=== PATIENT | female | born 1995 | race Caucasian/White ===

== ENCOUNTER → 2019-11-10 14:40 | Outpatient (BNVA) | payer MEDICAID, SELFPAY | PROVIDERS: Visit Provider Obstetrics & Gynecology | DX: Z3A.00 Weeks of gestation of pregnancy not specified (principal); Z34.90 Encounter for supervision of normal pregnancy, unspecified, unspecified trimester | CPT/HCPCS: 80053; 80307; 82950; 84315; 85027; 86592; 86762; 86803; 86850; 86900; 87340; 87806 ==

== ENCOUNTER → 2019-11-14 08:05 | Outpatient (BNVA) | payer MEDICAID, SELFPAY | PROVIDERS: Visit Provider Obstetrics & Gynecology | DX: R73.09 Other abnormal glucose (principal) | CPT/HCPCS: 82951; 82952 ==

== ENCOUNTER → 2019-11-18 08:52 | Outpatient (BNVA) | payer MEDICAID, SELFPAY | PROVIDERS: Visit Provider Obstetrics & Gynecology | DX: Z34.90 Encounter for supervision of normal pregnancy, unspecified, unspecified trimester (principal) | CPT/HCPCS: 76815; 83036; 84315 ==

== ENCOUNTER → 2019-11-25 13:12 | Outpatient (BNVA) | payer MEDICAID, SELFPAY | PROVIDERS: Visit Provider Nurse Practitioner Women's Health | DX: O24.312 Unspecified pre-existing diabetes mellitus in pregnancy, second trimester (principal); O99.211 Obesity complicating pregnancy, first trimester; O99.341 Other mental disorders complicating pregnancy, first trimester; Z3A.12 12 weeks gestation of pregnancy | CPT/HCPCS: 80053; 84315; 87491; 87591; 87661 ==

== ENCOUNTER → 2020-03-15 09:48 | Outpatient (BNVA) | payer MEDICAID, SELFPAY | PROVIDERS: Visit Provider Obstetrics & Gynecology | DX: O09.892 Supervision of other high risk pregnancies, second trimester (principal); Z3A.00 Weeks of gestation of pregnancy not specified | CPT/HCPCS: 84315; 85027 ==

== ENCOUNTER → 2020-04-14 08:38 | Outpatient (BNVA) | payer MEDICAID, SELFPAY | PROVIDERS: PCP Family Medicine; Visit Provider Obstetrics & Gynecology | DX: O24.113 Pre-existing type 2 diabetes mellitus, in pregnancy, third trimester (principal); O16.9 Unspecified maternal hypertension, unspecified trimester; B37.3 Candidiasis of vulva and vagina; R30.0 Dysuria | CPT/HCPCS: 84315; 87086 ==

== ENCOUNTER 2020-04-18 14:54 | Outpatient (CLI) | payer MEDICAID, SELFPAY ==
[2020-04-18 16:33] LABS: Total Protein 24 Hour Urine 156.8 mg/24HR (0-150); Total Volume, Urine 2375 mL; Urine Total Protein 24 Hour 6.6 mg/dL (0-150)
== END 2020-04-18 14:55 | disposition home or self-care (01) ==
LOC: LAB 14:57
PROVIDERS: PCP Family Medicine; Referring Provider Obstetrics & Gynecology; Visit Provider Obstetrics & Gynecology
DX: O24.113 Pre-existing type 2 diabetes mellitus, in pregnancy, third trimester (principal); O16.9 Unspecified maternal hypertension, unspecified trimester
CPT/HCPCS: 84156

== ENCOUNTER → 2020-05-10 08:50 | Outpatient (BNVA) | payer MEDICAID, SELFPAY | PROVIDERS: PCP Family Medicine; Visit Provider Obstetrics & Gynecology | DX: O24.113 Pre-existing type 2 diabetes mellitus, in pregnancy, third trimester (principal); O09.893 Supervision of other high risk pregnancies, third trimester; Z3A.00 Weeks of gestation of pregnancy not specified | CPT/HCPCS: 84315; 87081 ==

== ENCOUNTER → 2020-05-24 09:03 | Outpatient (BNVA) | payer MEDICAID, SELFPAY | PROVIDERS: PCP Family Medicine; Visit Provider Obstetrics & Gynecology | DX: O09.893 Supervision of other high risk pregnancies, third trimester (principal); O24.113 Pre-existing type 2 diabetes mellitus, in pregnancy, third trimester; O99.820 Streptococcus B carrier state complicating pregnancy; O16.3 Unspecified maternal hypertension, third trimester; Z3A.00 Weeks of gestation of pregnancy not specified | CPT/HCPCS: 84315; 87635 ==

== ENCOUNTER 2020-05-28 14:14 | Outpatient (CLI) | payer MEDICAID, SELFPAY ==
--- NOTE | 2020-05-28 14:22 | US_ITS ---
WS: [id number] BIOPHYSICAL PROFILE HISTORY: O24.113 - Pre-existing type 2 diabetes mellitus, in , third trimester COMPARISON: 05/24/2020 Cardiac activity: 147 bpm. Cervix: closed. Placenta: Not visualized. Parameters are as follows: Breathin Movement: 2 Tone: 2 Fluid volume: 2 Single vertical pocket of amniotic fluid 3.2 cm. US/US OB BPP wo NST 44137 IMPRESSION: 1. Biophysical profile score: 8/8. 2. Single vertical pocket of amniotic fluid is 3.2 cm.
== END 2020-05-28 14:15 | disposition home or self-care (01) ==
PROVIDERS: PCP Obstetrics & Gynecology; Visit Provider Obstetrics & Gynecology
DX: O24.113 Pre-existing type 2 diabetes mellitus, in pregnancy, third trimester (principal)
CPT/HCPCS: 76819

== ENCOUNTER 2020-05-30 19:15 | Inpatient (IN) | payer MEDICAID, SELFPAY ==
[2020-05-30] VITALS (12 sets, daily range): BP systolic 116–140; BP diastolic 56–92; PULSE 77–112; TEMP 36–36.1; BMI 66.0
[2020-05-30 19:53] LABS: Glucose Point of Care 109 mg/dL (70-110)
[2020-05-30 20:46] LABS: Basophils % 0.1 %; Eosinophils % 0.2 %; Hemoglobin 12.9 g/dL (11.5-15.3); Lymphocytes # 2.7 10^3/uL (0.8-4.8); Lymphocytes % 18.4 %; Mean Corpuscular HGB Conc 30.7 g/dL (30.0-36.0); Mean Corpuscular Hemoglobin 25.6 pg (28.0-34.0); Mean Corpuscular Volume 83.3 fL (81-99); Mean Platelet Volume 11.8 fL (7.4-10.4); Monocytes # 1.1 10^3/uL (0.2-0.9); Monocytes % 7.8 %; Neutrophils # 10.68 10^3/uL (1.8-7.7); Neutrophils % 73.2 %; Nucleated Red Blood Cells % 0 %; Platelet Count 297 10^3/cmm (130-400); Red Blood Count 5.04 10^6/uL (4.1-5.3); White Blood Count 14.6 10^3/uL (4.0-10.0)
[2020-05-30 21:10] LABS: Add Urine Microscopic? YES; Bilirubin Urine Neg (Negative); Blood Urine Trace (Negative); Glucose Urine UA Norm (Normal); Ketones Urine Negative (Negative); Leukocyte Esterase Urine Negative (Negative); Nitrate Urine Negative (Negative); Protein Urine Trace (Negative); Urine Appearance Clear (CLEAR); Urine Color Yellow (Yellow); Urobilinogen Urine 1 mg/dL (Negative); pH Urine 5 (5-7)
[2020-05-30 21:11] LABS: Add Urine Culture? No; Bacteria Urine TRACE /hpf; Mucus Urine 2+ /hpf; RBC Urine 0-4 /hpf (0-2); Squamous Epithelial Cell Urine 25-40 /hpf (0-5); WBC Urine 0-4 /hpf (0-5)
[2020-05-30 21:18] LABS: Alanine Aminotransferase 14 U/L (0-33); Albumin Level 3.1 g/dL (3.5-5.2); Alkaline Phosphatase 140 IU/L (35-105); Anion Gap 16.1 (5-19); Aspartate Amino Transferase 14 U/L (0-32); Blood Urea Nitrogen 13 mg/dL (6-20); Carbon Dioxide 22 mmol/L (22-29); Chloride 106 mmol/L (98-107); Globulin 3.5 g/dL (1.3-4.6); Glomerular Filtration Rate 103.7 mL/min (90-130); Glucose 110 mg/dL (65-115); Osmolality Calculated 291 mOsm/kg (285-295); Potassium 4.1 mmol/L (3.5-5.1); Sodium 140 mmol/L (136-145); Total Bilirubin 0.3 mg/dL (0.15-1.2); Total Protein 6.6 g/dL (6.6-8.7); Uric Acid 6.4 mg/dL (2.4-5.7)
[2020-05-30 21:21] LABS: UPRO/UCREAT Ratio 0.23 mg/mg CR; Urine Creatinine 212 mg/dL (28-217); Urine Protein Random 48 mg/dL
[2020-05-30] MEDS: ampicillin 2,000 MG in sodium chloride 0.9% (plus) 50 ML 100 MG IV (21:27)
[2020-05-30] MEDS: dextrose 5%-sod chloride 0.9% 1,000 ML 125 ML IV (21:27)
[2020-05-30] MEDS: miSOPROStol 100 mcg tablet 25 MCG VAGINAL (21:43)
[2020-05-30] MEDS: morphine 4 mg/mL SDV 1 mL 8 MG IM (23:23)
[2020-05-30] MEDS: promethazine 25 mg/mL SDV 1 mL IM (23:24)
[2020-05-31] VITALS (110 sets, daily range): BP systolic 114–149; BP diastolic 56–92; PULSE 69–97; RESP 16–17; TEMP 35.8–37.2; O2SAT 94–99
[2020-05-31] MEDS: ampicillin 1,000 MG in sodium chloride 0.9% (plus) 50 ML 100 MG IV ×6 (01:33→21:24)
[2020-05-31] MEDS: miSOPROStol 100 mcg tablet 25 MCG VAGINAL ×3 (02:59→11:54)
[2020-05-31 03:57] LABS: Glucose Point of Care 108 mg/dL (70-110)
[2020-05-31 03:57] LABS: Glucose Point of Care 112 mg/dL (70-110)
[2020-05-31] MEDS: dextrose 5%-sod chloride 0.9% 1,000 ML 125 ML IV ×2 (05:40→15:17)
[2020-05-31 07:53] LABS: Glucose Point of Care 103 mg/dL (70-110)
[2020-05-31 12:12] LABS: Glucose Point of Care 90 mg/dL (70-110)
[2020-05-31 16:42] LABS: Glucose Point of Care 88 mg/dL (70-110)
--- NOTE | 2020-05-31 18:34 | PM.PN ---
Subjective Subjective: Interval history: Subjective- Ms. Fletcher is a 25-year-old 1 para 0 at 39 weeks and 2 days today who is undergoing induction for type 2 diabetes controlled with glyburide. History is significant for morbid obesity with a BMI of 66, acid reflux on famotidine, elevated blood pressure without a diagnosis of gestational hypertension and was thought to be related to anxiety. She presented at 8 PM on 05/30/2020 for scheduled induction and at that time had a category 1 tracing with no contractions and cervix was 1/75 percent and -4 station with a ballotable head, cephalic. She was GBS positive and started on antibiotics for GBS prophylaxis. She was also immediately placed on SCDs to help with DVT prophylaxis. Fingersticks were monitored every 4 hours and remained at goal. -Her blood pressure was initially elevated and preeclamptic labs were done and protein creatinine ratio was negative for preeclampsia with a ratio of 0.26 and remainder of labs were within normal limits -Induction was started with Cytotec placed at 10 PM and overnight and into the next day she received a total of 4 doses of Cytotec and with this her cervix made gradual change and was 3 cm 75% and -3 station. She states that she is doing okay now. Feels better after eating and having a rest. She can feel some movement and just wants to have this baby already. Objective- Blood pressure-125/63 mmHg Pulse-80 beats per minute Temperature-97.8 Fahrenheit Abdomen-gravid, nontender, morbid obesity Sterile vaginal exam-deferred EFM-135, moderate variability, accelerations present no decelerations [place]-contractions not present Assessment: 25-year-old 1 para 0 at 39 weeks and 2 days Induction of labor for type II diabetic on glyburide Morbid obesity with a BMI of 66 GBS positive on antibiotics Elevated blood pressure-likely gestational hypertension-preeclamptic labs negative on 05/30/2020 GERD on medication Anxiety not on medication Plan: Since she is at 12 hours or more of medication we will do therapeutic rest and plan on starting Pitocin for induction after about 4 to 6 hours. Patient to have a regular diet ambulate and shower. When patient is at rest SCDs to be placed -Plan was discussed with patient and all her questions were answered. Covid testing 7 days this today and we will repeat Covid testing-done today Vitals/I&O/Wt Last Vital Signs Temp 97.8 F 05/31/20 17:40 Pulse 80 05/31/20 16:48 Resp 16 05/31/20 17:40 BP 125/63 05/31/20 16:48 05/31/20 05/31/20 05/31/20 06:59 14:59 22:59 Intake Total 1100 / 1150 1050 / 1050 254.167 / 1304.167 Balance 1100 / 1150 1050 / 1050 254.167 / 1304.167 Weight last 48 hrs Weight 385 lb Data : 05/30/20 19:58 05/30/20 20:30 Attestations Medical Necessity Statement*: Patient will need to stay for 2 or 3 more nights for induction delivery and recovery Coding Level of Care Code Acute Perpetual Inventory Clerk for Clifton Alonzo
[2020-05-31 19:34] LABS: Glucose Point of Care 151 mg/dL (70-110)
[2020-05-31] MEDS: lactated ringers 1,000 ML 999 ML IV (23:35)
[2020-06-01] VITALS (232 sets, daily range): BP systolic 108–194; BP diastolic 56–92; PULSE 66–115; RESP 17–18; TEMP 35.4–36.9; O2SAT 90–100
[2020-06-01 00:02] LABS: Glucose Point of Care 91 mg/dL (70-110)
[2020-06-01] MEDS: oxytocin 30 UNIT/500 ML BAG IV (00:49)
[2020-06-01] MEDS: ampicillin 1,000 MG in sodium chloride 0.9% (plus) 50 ML 100 MG IV ×3 (00:54→09:43)
[2020-06-01 04:01] LABS: Glucose Point of Care 105 mg/dL (70-110)
[2020-06-01] MEDS: lactated ringers 1,000 ML 125 ML IV (05:05)
--- NOTE | 2020-06-01 06:32 | P.PCNOB_ITS ---
Delivery Note: Date of delivery: June 02, 2020 - PRE-DELIVERY DIAGNOSIS: 25-year-old 1 para 0 at 39 weeks and 3 days gestation Type 2 diabetes well controlled on glyburide GBS positive-on antibiotics Elevated blood pressure-likely check gestational hypertension-negative for preeclampsia GERD on medication Anxiety not on medication Morbid obesity with a BMI of 66 POST-DELIVERY DIAGNOSIS: 25-year-old 1 para 1 status post vaginal delivery Vaginal sulcal tear Type 2 diabetes Morbid obesity BMI of 66 PROCEDURE: Vaginal delivery on 06/01/2020 ANESTHESIA: Local anesthesia with 2% lidocaine DELIVERING PHYSICIAN: Treasure Stacy FACOG PRE-DELIVERY COURSE: Ms. Fletcher is a 25-year-old 1 para 0 at 39 weeks and 2 days today presented for scheduled induction of labor for type 2 diabetes controlled with glyburide. History is significant for morbid obesity with a BMI of 66, acid reflux on famotidine, elevated blood pressure without a diagnosis of gestational hypertension and was thought to be related to anxiety. She presented at 8 PM on 05/30/2020 for scheduled induction and at that time had a category 1 tracing with no contractions and cervix was 1/75 percent and -4 station with a ballotable head, cephalic. She was GBS positive and started on antibiotics for GBS prophylaxis. She was also immediately placed on SCDs to help with DVT prophylaxis. Fingersticks were monitored every 4 hours and remained at goal. -Her blood pressure was initially elevated and preeclamptic labs were done and protein creatinine ratio was negative for preeclampsia with a ratio of 0.26 and remainder of labs were within normal limits -Induction was started with Cytotec placed at 10 PM and overnight and into the next day she received a total of 4 doses of Cytotec and with this her cervix made gradual change and was 3 cm 75% and -3 station. She was given a rest period And started on Pitocin titrated to a maximum of 5 mIU with this she started to have regular contractions and was pretty uncomfortable. She declined an epidural and was given IV fentanyl. Fingersticks were monitored every 2 hours when in active labor and were noted to be at goal. SCDs were continued the whole time. she had spontaneous rupture of membranes at about 8:30 AM with clear fluid and was 5 to 6 cm. She was 9 cm at about 1045 and very uncomfortable and unable to control pushing. She was complete at 11:15 AM on 06/01/2020 and +3 station. She was set up in lithotomy position ready to push. DELIVERY NOTE: She was set up in lithotomy position and was pushing effectively. She was noted to be +3 station and continued pushing well. The head delivered in direct OA position, nuchal cord x1 was present. The shoulders and rest of the body followed with her next push without any difficulty. The baby's mouth and nose were suctioned and the baby was placed on the mother's belly. At 1 minute cord was clamped and cut and the baby was taken to the warmer as initial heartbeat was noted to be in the 80s. The placenta delivered spontaneously intact with membranes and was discarded. The fundus was noted to be firm and well contracted however the lower uterine segment was boggy and as patient had no epidural she did not tolerate the bimanual massage very well. 800 mcg of Cytotec was placed per rectum and with this the uterine lower segment tone improved.. The vagina and cervix were inspected and[default value] no cervical lacerations were noted. There was noted to be deep left-sided sulcal laceration extending up to the level of the lateral fornix. Visualization was very difficult given prolapsing vaginal vasquez and patient's body habitus as well as the fact that she was uncomfortable she did not have an epidural. Patient was given IV fentanyl and this did help, seed analysis laboratory assistant was called in to help with retraction and long vaginal retractors were used to visualize the fornix well. Once visualization was obtained the apex of the sulcal tear was visualized without difficulty and was repaired with 2-0 Vicryl in a continuous interlocking fashion. It was noted to be a first-degree tear with only the vaginal tissue involved. Once this was repaired no areas of bruising or collecting hematoma were identified. The sulcal tear went into a second-degree perineal tear which was also repaired with 2-0 Vicryl in a continuous interlocking fashion and good hemostasis and reapproximation was obtained. Rectal exams were done and rectal mucosa and anal sphincter were noted to be intact and not involved with a tear. She was also noted to have a first-degree vaginal tear on the right side which was oozing and repaired with 3-0 Vicryl in a continuous interlocking fashion. At the end of the repair cervix was visualized noted to be intact and the remainder of the repair was also noted to be intact and hemostatic. Sponge and needle count were correct x4. Baby boy, Raul born at 1119 on 06/01/2018 with 6/9, weighing 8 pounds 6 ounces, 3790 g, 20-1/2 inches long. Placenta was delivered spontaneously intact with membranes at 11:26 AM. Cotyledons were intact , centrally inserted umbilical cord with 3 vessels noted. Estimated blood loss 600 mL. Complications-none, patient was left to recover in a stable condition This documentation was created by [employer] upper leather sorter software (known for inherent upper leather sorter error). Every effort was made to assure accuracy of upper leather sorter. Any obvious errors or omissions should be clarified with the author of the document. Coding Level of Care Code Acute Daytime Caregiver for Clifton Alonzo
[2020-06-01] MEDS: fentaNYL 50 mcg/mL INJ 2mL IVP ×2 (06:46→11:59)
[2020-06-01] MEDS: ondansetron 2 mg/ML SDV 2 mL 4 MG IVP (06:58)
[2020-06-01] MEDS: dextrose 5%-sod chloride 0.9% 1,000 ML 125 ML IV (08:11)
[2020-06-01] MEDS: fentaNYL 50 mcg/mL INJ 2mL 75 MCG IVP ×2 (08:56→13:34)
[2020-06-01 10:45] LABS: Glucose Point of Care 112 mg/dL (70-110)
[2020-06-01 10:45] LABS: Glucose Point of Care 87 mg/dL (70-110)
[2020-06-01] MEDS: miSOPROStol 200 mcg Tablet 800 MCG PR (11:34)
[2020-06-01] MEDS: lidocaine 2% INJ 20 mL INJECTION (11:39)
[2020-06-01 12:39] LABS: Basophils % 0.1 %; Hematocrit 39.6 % (37.0-47.0); Hemoglobin 12.2 g/dL (11.5-15.3); Lymphocytes % 5.7 %; Mean Corpuscular HGB Conc 30.8 g/dL (30.0-36.0); Mean Corpuscular Hemoglobin 25.7 pg (28.0-34.0); Mean Corpuscular Volume 83.5 fL (81-99); Mean Platelet Volume 11.7 fL (7.4-10.4); Monocytes # 0.5 10^3/uL (0.2-0.9); Neutrophils # 15.33 10^3/uL (1.8-7.7); Neutrophils % 90.2 %; Nucleated Red Blood Cells % 0 %; Platelet Count 266 10^3/cmm (130-400); Red Blood Count 4.74 10^6/uL (4.1-5.3); Red Cell Distribution Width 14.8 % (12.1-15.1)
[2020-06-01] MEDS: benzocaine-menthol 78 gm Canister 1 SPRAY TOPICAL (13:47)
[2020-06-01] MEDS: HYDROcodone-acetaminophen 5-325 mg Tablet PO (13:47)
[2020-06-01] MEDS: ibuprofen 800 mg tablet PO ×2 (16:11→20:15)
[2020-06-01 16:21] LABS: Coronavirus Test Green County Not Detected
[2020-06-01 17:03] LABS: Basophils % 0.1 %; Hematocrit 36.3 % (37.0-47.0); Lymphocytes # 1.6 10^3/uL (0.8-4.8); Lymphocytes % 8.2 %; Mean Corpuscular HGB Conc 30.3 g/dL (30.0-36.0); Mean Corpuscular Hemoglobin 25.9 pg (28.0-34.0); Mean Corpuscular Volume 85.6 fL (81-99); Mean Platelet Volume 11.9 fL (7.4-10.4); Monocytes % 4.9 %; Neutrophils # 17.27 10^3/uL (1.8-7.7); Neutrophils % 86.2 %; Nucleated Red Blood Cells % 0 %; Platelet Count 258 10^3/cmm (130-400); Red Blood Count 4.24 10^6/uL (4.1-5.3)
[2020-06-01 20:10] LABS: Glucose Point of Care 171 mg/dL (70-110)
[2020-06-01] MEDS: docusate sodium 100 mg Capsule PO (20:15)
[2020-06-01 22:55] LABS: Basophils # 0.1 10^3/uL (0.0-0.1); Basophils % 0.2 %; Hematocrit 38.6 % (37.0-47.0); Hemoglobin 11.3 g/dL (11.5-15.3); Lymphocytes # 4.3 10^3/uL (0.8-4.8); Lymphocytes % 18.8 %; Mean Corpuscular HGB Conc 29.3 g/dL (30.0-36.0); Mean Corpuscular Volume 88.9 fL (81-99); Mean Platelet Volume 11.8 fL (7.4-10.4); Monocytes # 2.5 10^3/uL (0.2-0.9); Neutrophils # 15.69 10^3/uL (1.8-7.7); Neutrophils % 69.4 %; Nucleated Red Blood Cells % 0 %; Platelet Count 276 10^3/cmm (130-400); Red Blood Count 4.34 10^6/uL (4.1-5.3); Red Cell Distribution Width 15.1 % (12.1-15.1); White Blood Count 22.6 10^3/uL (4.0-10.0)
[2020-06-02] MEDS: HYDROcodone-acetaminophen 5-325 mg Tablet PO ×3 (01:56→23:20)
[2020-06-02 02:35] VITALS: BP 121/63; PULSE 102; TEMP 36.6
[2020-06-02 05:49] LABS: Basophils % 0.2 %; Eosinophils % 0.1 %; Hematocrit 31.9 % (37.0-47.0); Hemoglobin 9.4 g/dL (11.5-15.3); Lymphocytes # 3.9 10^3/uL (0.8-4.8); Lymphocytes % 25.9 %; Mean Corpuscular HGB Conc 29.5 g/dL (30.0-36.0); Mean Corpuscular Hemoglobin 25.8 pg (28.0-34.0); Mean Corpuscular Volume 87.4 fL (81-99); Mean Platelet Volume 11.9 fL (7.4-10.4); Monocytes # 1.5 10^3/uL (0.2-0.9); Neutrophils % 63.3 %; Nucleated Red Blood Cells % 0 %; Platelet Count 239 10^3/cmm (130-400); Red Blood Count 3.65 10^6/uL (4.1-5.3); Red Cell Distribution Width 15.2 % (12.1-15.1)
--- NOTE | 2020-06-02 06:00 | PC.NURSE ---
MD at nurses station, reported patient states that she is in pain and requesting pain medication. MD updated on last dose and time of pain medication given. MD orders patient to have 2 hydrocodone tablets 5/325mg at this time.
--- NOTE | 2020-06-02 06:40 | P.PN_ITS ---
Subjective Subjective: Interval history: SUBJECTIVE: Ms. Fletcher is doing well today. Feels much better than she did immediately after delivery. She is ambulating well voiding without any difficulty and tolerating p.o. without nausea and vomiting. Is still a little sore in her vagina and pain medication does not resolve the pain. She is breast-feeding and bonding well with her son. She wants him to have a circumcision. She denies heavy week Flagyl bleeding abdominal pain, fever, chills, shortness of breath and chest pain OBJECTIVE/PHYSICAL EXAM: Gen.: No acute distress Heart: S1-S2 heard, regular rate and rhythm Lungs: Clear to auscultation bilaterally Abdomen: Soft, fundus firm below umbilicus,-although it is not well palpable given the patient's morbid obesity Legs: No calf tenderness, 1+ pitting bilateral pedal edema. ASSESSMENT AND PLAN: 25-year-old 1 para 1 status post vaginal delivery, day #1 -We will monitor what sugars look like today and restart glyburide as needed -SCDs on while patient is in bed or in the chair and only off when patient is am bulating for DVT prophylaxis -I would like to start heparin/Lovenox for DVT prophylaxis however I am concerned about possible vaginal hematoma formation and have been following hemoglobins throughout the night-hemoglobin this morning 9.4 with stable vital signs. Anticipate 1 more hemoglobin at noon and if hemoglobin is stable will start heparin for DVT prophylaxis--consider DVT prophylaxis with Lovenox/heparin as well-this was discussed with patient and all her questions were answered -She desires circumcision for her son-this was discussed, informed consent obtained -Anticipate discharge home tomorrow as long as she continues to do well without any problems -Encourage ambulation -Perineal care reviewed Vitals/I&O/Wt Last Vital Signs Temp 97.9 F 06/02/20 02:35 Pulse 102 H 06/02/20 02:35 Resp 17 06/01/20 18:30 BP 121/63 06/02/20 02:35 Pulse Ox 97 06/01/20 23:40 06/01/20 06/01/20 06/02/20 14:59 22:59 06:59 Intake Total 991.433 / 218.776 0932 / 1991.433 Output Total 300 / 300 200 / 500 250 / 750 Balance 691.433 / 691.433 800 / 1491.433 -250 / 1241.433 Data : 06/02/20 05:30 05/30/20 20:30 Attestations Medical Necessity Statement*: She will need to stay 1 or 2 midnights to recover from delivery Coding Level of Care Code Acute Sleeping Bag Filler for Clifton Alonzo
[2020-06-02 06:59] VITALS: BP 110/52; PULSE 104; TEMP 37.8
[2020-06-02] MEDS: docusate sodium 100 mg Capsule PO ×2 (09:43→18:04)
[2020-06-02] MEDS: prenatal vitamin Capsule 1 CAP PO (09:43)
[2020-06-02] MEDS: ibuprofen 800 mg tablet PO ×3 (09:43→21:41)
[2020-06-02] MEDS: ferrous sulfate EC 325 mg Tablet PO (09:43)
[2020-06-02 12:11] LABS: Hemoglobin 9.9 g/dL (11.5-15.3); Mean Corpuscular HGB Conc 30.9 g/dL (30.0-36.0); Mean Corpuscular Hemoglobin 26.3 pg (28.0-34.0); Mean Corpuscular Volume 84.9 fL (81-99); Mean Platelet Volume 11.6 fL (7.4-10.4); Platelet Count 242 10^3/cmm (130-400); Red Blood Count 3.77 10^6/uL (4.1-5.3); Red Cell Distribution Width 15.4 % (12.1-15.1); White Blood Count 13.4 10^3/uL (4.0-10.0)
[2020-06-02] MEDS: heparin 5,000 unit/mL INJ 1 mL 5000 UNIT SUBCUT (14:11)
[2020-06-02 15:14] LABS: Glucose Point of Care 97 mg/dL (70-110)
[2020-06-02 15:14] LABS: Glucose Point of Care 101 mg/dL (70-110)
[2020-06-02 15:14] LABS: Glucose Point of Care 95 mg/dL (70-110)
[2020-06-02 15:51] VITALS: BP 135/91; PULSE 106; TEMP 36
[2020-06-02 15:55] VITALS: TEMP 36.5; O2SAT 98
[2020-06-02] MEDS: acetaminophen 325 mg Tablet 650 MG PO (18:03)
[2020-06-02 18:41] LABS: Glucose Point of Care 127 mg/dL (70-110)
[2020-06-02 21:50] VITALS: TEMP 36.8
[2020-06-02 21:51] VITALS: BP 143/74; PULSE 111; O2SAT 97
[2020-06-03] MEDS: heparin 5,000 unit/mL INJ 1 mL 5000 UNIT SUBCUT (03:40)
[2020-06-03 03:42] VITALS: BP 125/63; PULSE 96; TEMP 36.2
[2020-06-03 07:21] LABS: Glucose Point of Care 78 mg/dL (70-110)
[2020-06-03] MEDS: HYDROcodone-acetaminophen 5-325 mg Tablet PO (07:26)
--- NOTE | 2020-06-03 08:07 | PM.DCS ---
Discharge Providers Date of Admission: 05/30/20 20:34 Date of Discharge: June 03, 2020 Attending Provider at Admission: Treasure Bolanos MD Attending Provider at Discharge: Treasure Bolanos MD PRE-DELIVERY DIAGNOSIS: 25-year-old 1 para 0 at 39 weeks and 3 days gestation Type 2 diabetes well controlled on glyburide GBS positive-on antibiotics Elevated blood pressure-likely check gestational hypertension-negative for preeclampsia GERD on medication Anxiety not on medication Morbid obesity with a BMI of 66 POST-DELIVERY DIAGNOSIS: 25-year-old 1 para 1 status post vaginal delivery Vaginal sulcal tear Type 2 diabetes Morbid obesity BMI of 66 Occasionally elevated blood pressures-likely gestational hypertension PROCEDURE: Vaginal delivery on 06/01/2020 ANESTHESIA: Local anesthesia with 2% lidocaine DELIVERING PHYSICIAN: Treasure Stacy FACOG PRE-DELIVERY COURSE: Ms. Fletcher is a 25-year-old 1 para 0 at 39 weeks and 2 days today presented for scheduled induction of labor for type 2 diabetes controlled with glyburide. History is significant for morbid obesity with a BMI of 66, acid reflux on famotidine, elevated blood pressure without a diagnosis of gestational hypertension and was thought to be related to anxiety. She presented at 8 PM on 05/30/2020 for scheduled induction and at that time had a category 1 tracing with no contractions and cervix was 1/75 percent and -4 station with a ballotable head, cephalic. She was GBS positive and started on antibiotics for GBS prophylaxis. She was also immediately placed on SCDs to help with DVT prophylaxis. Fingersticks were monitored every 4 hours and remained at goal. -Her blood pressure was initially elevated and preeclamptic labs were done and protein creatinine ratio was negative for preeclampsia with a ratio of 0.26 and remainder of labs were within normal limits -Induction was started with Cytotec placed at 10 PM and overnight and into the next day she received a total of 4 doses of Cytotec and with this her cervix made gradual change and was 3 cm 75% and -3 station. She was given a rest period And started on Pitocin titrated to a maximum of 5 mIU with this she started to have regular contractions and was pretty uncomfortable. She declined an epidural and was given IV fentanyl. Fingersticks were monitored every 2 hours when in active labor and were noted to be at goal. SCDs were continued the whole time. she had spontaneous rupture of membranes at about 8:30 AM with clear fluid and was 5 to 6 cm. She was 9 cm at about 1045 and very uncomfortable and unable to control pushing. She was complete at 11:15 AM on 06/01/2020 and +3 station. She was set up in lithotomy position ready to push. DELIVERY NOTE: She was set up in lithotomy position and was pushing effectively. She was noted to be +3 station and continued pushing well. The head delivered in direct OA position, nuchal cord x1 was present. The shoulders and rest of the body followed with her next push without any difficulty. The baby's mouth and nose were suctioned and the baby was placed on the mother's belly. At 1 minute cord was clamped and cut and the baby was taken to the warmer as initial heartbeat was noted to be in the 80s. The placenta delivered spontaneously intact with membranes and was discarded. The fundus was noted to be firm and well contracted however the lower uterine segment was boggy and as patient had no epidural she did not tolerate the bimanual massage very well. 800 mcg of Cytotec was placed per rectum and with this the uterine lower segment tone improved.. The vagina and cervix were inspected and[default value] no cervical lacerations were noted. There was noted to be deep left-sided sulcal laceration extending up to the level of the lateral fornix. Visualization was very difficult given prolapsing vaginal vasquez and patient's body habitus as well as the fact that she was uncomfortable she did not have an epidural. Patient was given IV fentanyl and this did help, administrative assistant coordinator was called in to help with retraction and long vaginal retractors were used to visualize the fornix well. Once visualization was obtained the apex of the sulcal tear was visualized without difficulty and was repaired with 2-0 Vicryl in a continuous interlocking fashion. It was noted to be a first-degree tear with only the vaginal tissue involved. Once this was repaired no areas of bruising or collecting hematoma were identified. The sulcal tear went into a second-degree perineal tear which was also repaired with 2-0 Vicryl in a continuous interlocking fashion and good hemostasis and reapproximation was obtained. Rectal exams were done and rectal mucosa and anal sphincter were noted to be intact and not involved with a tear. She was also noted to have a first-degree vaginal tear on the right side which was oozing and repaired with 3-0 Vicryl in a continuous interlocking fashion. At the end of the repair cervix was visualized noted to be intact and the remainder of the repair was also noted to be intact and hemostatic. Sponge and needle count were correct x4. Baby boy, Raul born at 1119 on 06/01/2018 with 6/9, weighing 8 pounds 6 ounces, 3790 g, 20-1/2 inches long. Placenta was delivered spontaneously intact with membranes at 11:26 AM. Cotyledons were intact , centrally inserted umbilical cord with 3 vessels noted. Estimated blood loss 600 mL. Complications-none, patient was left to recover in a stable condition HOSPITAL COURSE: She underwent a vaginal delivery on 06/01/2020. She did well on day 0 and was ambulating well, tolerating regular diet, voiding freely, passing flatus. She was breast-feeding without difficulty and bonding well with her son. Circumcision was performed on him on day of life 1 per her request without any difficulty after informed consent was obtained. Pain was well-controlled with by mouth pain medication. She denied nausea, vomiting, fever, chills, shortness of breath, leg pain. She had moderate vaginal bleeding. On day # 1 she continued to do well with stable vital signs and stable hemoglobin at 9.9. She had had serial hemoglobins done on day 02 day 1 to ensure no hematoma formation. Vital signs were stable. Once hemoglobins were noted to be stable she was started first on heparin and then Lovenox for DVT prophylaxis and throughout her . When not ambulating SCDs were on place and working. -Fingersticks overall were only minimally elevated and so glyburide was not restarted. - She was discharged home on day 2 in a stable condition. Warning signs for endometritis, mastitis, DVT/PE were reviewed with her. Post delivery activity restrictions were also reviewed with her at all her questions were answered to her satisfaction. She is considering the IUD for contraception and information was provided to her on 06/03/2020 -Follow-up as scheduled with Dr. Baron--patient to monitor blood pressures 2 times a day and fingersticks fasting and 2 hours postprandial and bring these logs into her next visit in 2 weeks EXAM AT DISCHARGE: Gen.: No acute distress Heart: S1-S2 heard, regular rate and rhythm Lungs: Clear to auscultation bilaterally Abdomen: Soft, fundus firm below umbilicus Legs: No calf tenderness, negative Homans' sign, +1 bilateral pitting pedal edema. CONDITION AT DISCHARGE: Stable This documentation was created by [employer] piercing mill operator software (known for inherent piercing mill operator error). Every effort was made to assure accuracy of piercing mill operator. Any obvious errors or omissions should be clarified with the author of the document. Reason for Visit Reason for Visit: INDUCTION Discharge Data Data Completed and Pending: Labs from last 24 hours 06/03/20 06/02/20 06/02/20 07:18 18:37 14:16 WBC RBC Hgb Hct MCV MCH MCHC RDW Plt Count MPV POC Glucose 78 127 H 101 06/02/20 06/02/20 06/02/20 12:00 10:29 07:29 WBC 13.4 H RBC 3.77 L Hgb 9.9 L Hct 32.0 L MCV 84.9 MCH 26.3 L MCHC 30.9 RDW 15.4 H Plt Count 242 MPV 11.6 H POC Glucose 97 95 Vitals: Last Vital Signs Temp 97.2 F L 06/03/20 03:42 Pulse 96 06/03/20 03:42 Resp 17 06/01/20 18:30 BP 125/63 06/03/20 03:42 Pulse Ox 97 06/02/20 21:51 Discharge Plan Discharge Patient Disposition: Home Condition: Stable Prescriptions: New ibuprofen 800 mg tablet 800 mg PO Q8H Qty: 30 RF: 0 hydrocodone-acetaminophen 5-325 mg tablet 1 tab PO Q6H Qty: 15 RF: 0 docusate sodium 100 mg Capsule 100 mg PO BID PRN (Reason: constipation) Qty: 30 RF: 0 Lovenox 60 mg/0.6 mL syringe 60 mg SUBCUT DAILY 14 Days RF: 0 Continued famotidine 20 mg tablet 40 mg PO BID RF: 0 prenat.vits,shaquille,wnz-hcsi-yngjd Tablet 1 tab PO DAILY RF: 0 fluticasone propionate [Flonase Allergy Relief] 50 mcg/actuation spray,suspension 1 spray INTRANASAL DAILY RF: 0 loratadine [Claritin] 10 mg tablet 10 mg PO DAILY PRN (Reason: Allergy Symptoms) RF: 0 (DME) blood-glucose meter [Blood Glucose Monitoring] Kit See Rx Instructions .ROUTE .MEDSUPPLY Qty: 1 RF: 2 Held glyburide 5 mg tablet 2.5 mg PO BID RF: 0 Hold Instructions: Resume on 06/17/20. until seen by OB provider in 2 weeks Discharge Orders: Discharge Order (Routine); Ordered 06/03/20 Ordered By: Treasure Bolanos Referrals: Brennon Baron MD [Physician] - 07/15/20 8:00 am (-2-week and 6-week with Dr. Baron--7-week IUD insertion -Your 6 week follow up appointment is with Dr. Baron on 07/15/2020 at 8:00am.) Discharge Activity: Limit activity as instructed Patient Instructions: Hydrocodone/Acetaminophen (By mouth), Ibuprofen (By mouth), Enoxaparin (Injection), Perineal Care (DC), Expression, Collection and Storage of Breastmilk (DC), and Nipple Soreness (DC), How to Increase Your Milk Supply (DC), Breast Care for the Breast Feeding Mother (DC), Pre-eclampsia and Eclampsia (DC), Sitz Bath (DC), OB Discharge Report, OB Food/Drug Interaction Guide, OB Home Care, OB Vaginal Deliveries - [facility] Activity Restrictions/Additional Instructions: Pelvic rest for 6 weeks, no heavy lifting for 6 weeks Discharge Attestations Time Spent in Discharge Care*: greater than 30 min Quality Metrics Clinical Quality Measures During this hospital stay, did patient experience: None Coding Level of Care Code Acute Trading Assistant for Kannang Clinton
[2020-06-03] MEDS: prenatal vitamin Capsule 1 CAP PO (10:46)
[2020-06-03] MEDS: ibuprofen 800 mg tablet PO (10:46)
[2020-06-03] MEDS: docusate sodium 100 mg Capsule PO (10:46)
[2020-06-03] MEDS: ferrous sulfate EC 325 mg Tablet PO (10:50)
[2020-06-03 11:00] VITALS: BP 144/80; PULSE 97; RESP 16; TEMP 36.5; O2SAT 98
[2020-06-03 11:00] LABS: Glucose Point of Care 85 mg/dL (70-110)
[2020-06-03] MEDS: enoxaparin 60 mg/0.6 mL Syringe SUBCUT (12:57)
--- NOTE | 2020-06-03 13:15 | PC.NURSE ---
This nurse showed pt how to give herself Lovenox injection. This nurse educated pt to give injection in her abdomen and alternate injection sites. This nurse showed how to clean the injection site with alcohol and how to dart the needle. This nurse instructed pt leave the air bubble in the Lovenox syringe. Instructed pt how to properly discard needles and syringes after use. Recommended using a hard plastic container for her sharps, including lancets. Pt reported she had been throwing her lancets in the trash. Pt reports that she will not be able to give herself injections, but that her aunt could give them to her.
[2020-06-03 13:45] VITALS: BP 141/82; PULSE 106; RESP 17; TEMP 36.6; O2SAT 96
== END 2020-06-03 13:45 | disposition home or self-care (01) | DRG 805 ==
PROVIDERS: Admitting Provider Obstetrics & Gynecology; Visit Provider Obstetrics & Gynecology
DX: O99.344 Other mental disorders complicating childbirth (principal); O24.12 Pre-existing type 2 diabetes mellitus, in childbirth; Z37.0 Single live birth; F41.9 Anxiety disorder, unspecified; O99.214 Obesity complicating childbirth; O13.4 Gestational [pregnancy-induced] hypertension without significant proteinuria, complicating childbirth; E66.01 Morbid (severe) obesity due to excess calories; O99.824 Streptococcus B carrier state complicating childbirth; O69.2XX0 Labor and delivery complicated by other cord entanglement, with compression, not applicable or unspecified; O70.1 Second degree perineal laceration during delivery; E11.9 Type 2 diabetes mellitus without complications; Z3A.39 39 weeks gestation of pregnancy; O75.89 Other specified complications of labor and delivery; K21.9 Gastro-esophageal reflux disease without esophagitis; Z79.84 Long term (current) use of oral hypoglycemic drugs
CPT/HCPCS: 36415; 36416; 59025; 59409; 80053; 81001; 82570; 82962; 84156; 84550; 85025; 85027; 86850; 86900; 87635; 96372; 98960; 99211; G0378; G0379; J0290; J1644; J1650; J1815; J2270; J2405; J2550; J3010

== ENCOUNTER → 2020-07-22 10:32 | Outpatient (BNVA) | payer MEDICAID, SELFPAY | PROVIDERS: Visit Provider Obstetrics & Gynecology | DX: Z30.9 Encounter for contraceptive management, unspecified (principal) | CPT/HCPCS: 81025 ==

== ENCOUNTER → 2020-07-27 08:32 | Outpatient (BNVA) | payer MEDICAID, SELFPAY | PROVIDERS: Visit Provider Obstetrics & Gynecology | DX: O24.93 Unspecified diabetes mellitus in the puerperium (principal) | CPT/HCPCS: 82950 ==

== ENCOUNTER → 2020-12-29 13:27 | Outpatient (BNVA) | payer MEDICAID, SELFPAY | PROVIDERS: Visit Provider Obstetrics & Gynecology | DX: N75.1 Abscess of Bartholin's gland (principal) | CPT/HCPCS: 87070; 87077; 87184 ==

== ENCOUNTER → 2022-12-12 11:29 | Outpatient (BNVA) | payer BC, MEDICAID, SELFPAY | PROVIDERS: PCP Nurse Practitioner Family; Visit Provider Nurse Practitioner Family | DX: O24.93 Unspecified diabetes mellitus in the puerperium (principal); E66.01 Morbid (severe) obesity due to excess calories; R03.0 Elevated blood-pressure reading, without diagnosis of hypertension; R53.83 Other fatigue; I10 Essential (primary) hypertension | CPT/HCPCS: 80053; 80061; 83036; 84439; 84443; 84481; 85025 ==

== ENCOUNTER → 2024-01-02 10:58 | Outpatient (BNVA) | payer BC, SELFPAY | PROVIDERS: PCP Nurse Practitioner Family; Visit Provider Nurse Practitioner Family | DX: R03.0 Elevated blood-pressure reading, without diagnosis of hypertension (principal); E66.01 Morbid (severe) obesity due to excess calories | CPT/HCPCS: 80053; 80061; 84443 ==

== ENCOUNTER 2024-02-19 16:29 | Outpatient (CLI) | payer BC, SELFPAY | END 2024-02-19 16:30 | disposition home or self-care (01) | LOC: SLEEP 16:30 | PROVIDERS: PCP Nurse Practitioner Family; Visit Provider Nurse Practitioner Family | DX: G47.33 Obstructive sleep apnea (adult) (pediatric) (principal); G47.36 Sleep related hypoventilation in conditions classified elsewhere | CPT/HCPCS: G0399 ==

== ENCOUNTER 2024-06-05 20:00 | Outpatient (CLI) | payer BC, SELFPAY | END 2024-06-05 20:01 | disposition home or self-care (01) | LOC: SLEEP 06-06 02:53 | PROVIDERS: PCP Nurse Practitioner Family; Visit Provider Nurse Practitioner Family | DX: G47.33 Obstructive sleep apnea (adult) (pediatric) (principal) | CPT/HCPCS: 95811 ==

== ENCOUNTER → 2024-08-04 10:24 | Outpatient (BNVA) | payer BC, SELFPAY | PROVIDERS: PCP Nurse Practitioner Family; Visit Provider Nurse Practitioner Family | DX: E66.9 Obesity, unspecified (principal); R03.0 Elevated blood-pressure reading, without diagnosis of hypertension; I10 Essential (primary) hypertension; G47.33 Obstructive sleep apnea (adult) (pediatric); R79.89 Other specified abnormal findings of blood chemistry | CPT/HCPCS: 80053; 80061; 84443 ==

== ENCOUNTER 2024-08-22 17:09 | Outpatient (CLI) | payer BC, SELFPAY ==
--- NOTE | 2024-08-22 17:15 | US_ITS ---
WS: [id number] THYROID ULTRASOUND HISTORY: R79.89 - Other specified abnormal findings of blood chemi... COMPARISON: None available. Right lobe: 1.2 cm x 1.7 cm x 4.1 cm (w x ap x l). Volume: 4.2 cm3. Normal size thyroid. The thyroid is very coarse but no increased vascularity and no nodules. Margins are slightly lobulated. Left lobe: 1.3 cm x 0.8 cm x 3.1 cm (w x ap x l). Volume: 1.6 cm3. Small caliber thyroid. No nodules identified. Isthmus: 0.2 cm. Incidental note is made of small cysts within the LEFT submandibular gland. US/US thyroid 25598 IMPRESSION: 1. No thyroid nodules. 2. Small caliber LEFT thyroid. 3. No increased vascularity within the thyroid.
== END 2024-08-22 17:10 | disposition home or self-care (01) ==
LOC: RAD 17:14
PROVIDERS: PCP Nurse Practitioner Family; Visit Provider Nurse Practitioner Family
DX: R79.89 Other specified abnormal findings of blood chemistry (principal); R93.89 Abnormal findings on diagnostic imaging of other specified body structures; K11.6 Mucocele of salivary gland
CPT/HCPCS: 76536

== ENCOUNTER → 2024-09-15 12:06 | Outpatient (BNVA) | payer BC, SELFPAY | PROVIDERS: PCP Nurse Practitioner Family; Visit Provider Nurse Practitioner Family | DX: E03.9 Hypothyroidism, unspecified (principal) | CPT/HCPCS: 84443 ==

== ENCOUNTER → 2024-11-19 10:37 | Outpatient (BNVA) | payer BC, SELFPAY | PROVIDERS: PCP Nurse Practitioner Family; Visit Provider Nurse Practitioner | DX: L02.416 Cutaneous abscess of left lower limb (principal) | CPT/HCPCS: 87070 ==